=== PATIENT | male | born 2000 | race Caucasian/White ===

== ENCOUNTER 2022-06-08 20:22 | Emergency (ER) | payer OTHER ==
[~2022-06-08] VITALS: Ht 170.2 cm; Wt 61.3 kg
[2022-06-08 20:40] VITALS: BP 121/73
--- NOTE | 2022-06-08 20:43 | NUR ---
TO LOBBY A/W BED AMBULATORY
== END 2022-06-08 22:36 | disposition left against medical advice (07) ==
LOC: MED 20:22
DX: S61.213A Laceration without foreign body of left middle finger without damage to nail, initial encounter (principal); Z53.21 Procedure and treatment not carried out due to patient leaving prior to being seen by health care provider; W25.XXXA Contact with sharp glass, initial encounter; Y93.89 Activity, other specified; Y92.89 Other specified places as the place of occurrence of the external cause; Y99.8 Other external cause status

== ENCOUNTER 2022-06-17 14:26 | Emergency (ER) | payer OTHER ==
[~2022-06-17] VITALS: Ht 170.2 cm; Wt 61.8 kg
--- NOTE | 2022-06-17 14:30 | NUR ---
CALLEDX1. NO SHOW.
--- NOTE | 2022-06-17 14:40 | NUR ---
CALLEDX2. NO SHOW.
[2022-06-17 14:42] VITALS: BP 121/82
[2022-06-17] MEDS ORDERED: CEPH-588 PO (15:24)
[2022-06-17] MEDS ORDERED: IBUP-1842 PO (15:24)
--- NOTE | 2022-06-17 15:26 | NUR ---
pt refusing tdap vaccine at this time, pa made aware
[2022-06-17 15:36] VITALS: BP 121/82
--- NOTE | 2022-06-17 15:36 | NUR ---
Patient discharged with v/s stable. Written and verbal after care instructions given and explained. Patient alert, oriented and verbalized understanding of instructions. Ambulatory with steady gait. All questions addressed prior to discharge. ID band removed. Patient advised to follow up with PMD. Rx of keflex, motrin (sent) given. Patient educated on indication of medication including possible reaction and side effects. Opportunity to ask questions provided and answered.
== END 2022-06-17 15:36 | disposition home or self-care (01) ==
LOC: MED 14:26
DX: S61.203A Unspecified open wound of left middle finger without damage to nail, initial encounter (principal); F15.90 Other stimulant use, unspecified, uncomplicated; Z79.1 Long term (current) use of non-steroidal anti-inflammatories (NSAID); Z79.2 Long term (current) use of antibiotics; W22.8XXA Striking against or struck by other objects, initial encounter; Y92.89 Other specified places as the place of occurrence of the external cause; Y93.89 Activity, other specified; Y99.8 Other external cause status
CPT/HCPCS: 99283

== ENCOUNTER 2022-08-25 19:32 | Emergency (ER) | payer OTHER ==
[~2022-08-25] VITALS: Ht 165.1 cm; Wt 76.7 kg
[~2022-08-25 19:32] MED LIST: CEPH-588 PO; IBUP-1842 PO
[2022-08-25 20:20] VITALS: BP 117/74
--- NOTE | 2022-08-26 00:04 | NUR ---
PER ADMITING LWBS
== END 2022-08-26 00:04 | disposition left against medical advice (07) ==
LOC: MED 19:32
DX: T23.101A Burn of first degree of right hand, unspecified site, initial encounter (principal); T31.0 Burns involving less than 10% of body surface; Z53.21 Procedure and treatment not carried out due to patient leaving prior to being seen by health care provider; X58.XXXA Exposure to other specified factors, initial encounter; Y93.89 Activity, other specified; Y92.89 Other specified places as the place of occurrence of the external cause; Y99.8 Other external cause status
CPT/HCPCS: 99281

== ENCOUNTER 2022-09-07 04:25 | Emergency (ER) | payer OTHER ==
[~2022-09-07] VITALS: Ht 170.2 cm; Wt 59.6 kg
[2022-09-07 04:45] VITALS: BP 127/70
--- NOTE | 2022-09-07 04:48 | NUR ---
to lobby a/w bed ambulatory
--- NOTE | 2022-09-07 06:29 | NUR ---
Dr. Beebe examining patient.
[2022-09-07] MEDS ORDERED: IBUP-2213 PO ×2 (06:40→06:50)
[2022-09-07] MEDS ORDERED: SULF-59 PO ×2 (06:40→06:50)
[2022-09-07 06:50] VITALS: BP 122/70
--- NOTE | 2022-09-07 06:50 | NUR ---
Patient discharged with v/s stable. Written and verbal after care instructions given and explained. Patient alert, oriented and verbalized understanding of instructions. Ambulatory with steady gait. All questions addressed prior to discharge. ID band removed. Patient advised to follow up with PMD. Rx of Bactrim and Ibuprofen given. Patient educated on indication of medication including possible reaction and side effects. Opportunity to ask questions provided and answered.
== END 2022-09-07 06:50 | disposition home or self-care (01) ==
LOC: MED 04:25
DX: J32.9 Chronic sinusitis, unspecified (principal); Z21 Asymptomatic human immunodeficiency virus [HIV] infection status; Z79.1 Long term (current) use of non-steroidal anti-inflammatories (NSAID); Z79.2 Long term (current) use of antibiotics
CPT/HCPCS: 99283

== ENCOUNTER 2022-09-20 05:45 | Emergency (ER) | payer OTHER ==
[~2022-09-20 05:45] MED LIST changes: +IBUP-2213 PO; +SULF-59 PO
--- NOTE | 2022-09-20 06:01 | NUR ---
Called-no show in lobby and outside .
--- NOTE | 2022-09-20 06:15 | NUR ---
Brett left before triage.
--- NOTE | 2022-09-20 06:15 | NUR ---
Called-no show in lobby and outside .
== END 2022-09-20 06:01 | disposition left against medical advice (07) ==
LOC: MED 05:45
DX: R19.7 Diarrhea, unspecified (principal); Z53.21 Procedure and treatment not carried out due to patient leaving prior to being seen by health care provider

== ENCOUNTER 2022-09-22 06:53 | Emergency (ER) | payer OTHER ==
--- NOTE | 2022-09-22 07:07 | NUR ---
PT CAME TO ADMITTING AND SAID HE WAS LEAVING. PT LWBS
== END 2022-09-22 07:07 | disposition left against medical advice (07) ==
LOC: MED 06:53
DX: M79.643 Pain in unspecified hand (principal); Z53.21 Procedure and treatment not carried out due to patient leaving prior to being seen by health care provider

== ENCOUNTER 2022-10-02 21:43 | Emergency (ER) | payer OTHER ==
--- NOTE | 2022-10-02 22:40 | NUR ---
LEFT WITHOUT TRIAGE
== END 2022-10-02 22:40 | disposition left against medical advice (07) ==
LOC: MED 21:43
DX: R51.9 Headache, unspecified (principal); Z53.21 Procedure and treatment not carried out due to patient leaving prior to being seen by health care provider

== ENCOUNTER 2023-07-11 02:20 | Emergency (ER) | payer OTHER ==
[~2023-07-11] VITALS: Ht 170.2 cm; Wt 58.1 kg
[2023-07-11 02:26] VITALS: BP 121/92; PULSE 106; RESP 18; TEMP 98.3; O2SAT 98
[2023-07-11 02:42] VITALS: BP 121/92; PULSE 106; RESP 18; TEMP 98.3
[2023-07-11 02:44] VITALS: O2SAT 99
[2023-07-11] MEDS ORDERED: PENICILLIN V POTASSIUM 250 MG TAB PO ONE (02:55)
[2023-07-11] MEDS ORDERED: ACETAMINOPHEN EXTRA STRENGTH 500 MG TAB PO ONE (02:55)
[2023-07-11] MEDS ORDERED: KETOROLAC 30 MG/ML VIAL IM ONE (02:55)
[2023-07-11] MEDS ORDERED: PENI500T20 PO (03:02)
== END 2023-07-11 03:09 | disposition home or self-care (01) ==
LOC: MED 02:20
DX: K08.89 Other specified disorders of teeth and supporting structures (principal)
CPT/HCPCS: 96372; 99283; J1885